=== PATIENT | female | born 1960 | race Hispanic/Latino ===

== ENCOUNTER 2019-06-19 18:03 | Emergency (ER) | payer SELFPAY ==
[2019-06-19] MEDS ORDERED: SODIUM CHLORIDE 0.9% 1000ML 1,000 ML IV ONE (19:07)
[2019-06-19 19:16] LABS: APPEARANCE,URINE Clear (CLEAR); BILIRUBIN,URINE Negative (NEGATIVE); COLOR,URINE Yellow (YELLOW); GLUCOSE, URINE (UA) Negative (NEGATIVE); KETONES,URINE Trace mg/dL (NEGATIVE); LEUKOCYTE ESTERASE ,URINE Trace (NEGATIVE); NITRATE,URINE Negative (NEGATIVE); OCCULT BLOOD,URINE Trace (NEGATIVE); PROTEIN,URINE Negative (NEGATIVE); UROBILINOGEN,URINE 0.2 mg/dL (0.2-1.0)
[2019-06-19 19:20] LABS: BASOPHILS % (AUTO) 0.2 % (0.0-5.0); EOSINOPHILS % (AUTO) 0.3 % (0.0-8.0); HEMATOCRIT 33.4 % (36-48); MEAN CORPUSCULAR HEMOGLOBIN 31.7 pg (27.0-33.0); MEAN CORPUSCULAR HGB CONC 36.2 g/dL (32.0-36.0); MEAN CORPUSCULAR VOLUME 87.6 fL (79-99); NEUTROPHILS % (AUTO) 77.5 % (40.0-77.0); PLATELET COUNT (AUTO) 284 K/uL (130-400); RED BLOOD CELL COUNT(AUTO) 3.82 MIL/uL (4.00-5.50); RED CELL DISTRIBUTION WIDTH 13.2 % (11.0-15.5); WHITE BLOOD COUNT (AUTO) 10.7 K/uL (4.8-10.8)
[2019-06-19 19:28] LABS: ALBUMIN 4.4 g/dL (3.5-5.0); BILIRUBIN,TOTAL 0.6 mg/dL (0.2-1.0); CREATININE 0.8 mg/dL (0.5-1.5); POTASSIUM 3.4 mmol/L (3.5-5.1); TOTAL PROTEIN, SERUM 8.5 g/dL (6.0-8.3)
[2019-06-19] MEDS ORDERED: IOHEXOL-350 75 ML VIAL IV ONE (19:44)
[2019-06-19 20:06] LABS: BACTERIA,URINE Rare /HPF (None Seen); MUCUS,URINE None Seen LPF (None Seen); SQUAMOUS EPITHELIAL CELL,UR 0-2 /HPF (0-2)
== END 2019-06-19 20:30 | disposition home or self-care (01) ==
LOC: EDH 18:03
DX: I10 Essential (primary) hypertension (principal); R10.11 Right upper quadrant pain; E11.9 Type 2 diabetes mellitus without complications
CPT/HCPCS: 36415; 74177; 80053; 81001; 83690; 85025; 99285; J7030; Q9967

== ENCOUNTER 2020-03-24 17:06 | Inpatient (IN) | payer OTHER, SELFPAY ==
[2020-03-24 18:00] LABS: BASOPHILS % (AUTO) 0.2 % (0.0-5.0); HEMATOCRIT 31.5 % (36-48); MEAN CORPUSCULAR HEMOGLOBIN 29.6 pg (27.0-33.0); MEAN CORPUSCULAR HGB CONC 35.9 g/dL (32.0-36.0); MEAN CORPUSCULAR VOLUME 82.5 fL (79-99); MONOCYTES % (AUTO) 7.7 % (3.0-13.0); NEUTROPHILS % (AUTO) 69.9 % (40.0-77.0); PLATELET COUNT (AUTO) 241 K/uL (130-400); RED BLOOD CELL COUNT(AUTO) 3.82 MIL/uL (4.00-5.50); RED CELL DISTRIBUTION WIDTH 12.3 % (11.0-15.5); WHITE BLOOD COUNT (AUTO) 6.5 K/uL (4.8-10.8)
[2020-03-24 18:08] LABS: INR 0.97 (0.85-1.15); PROTHROMBIN TIME 10.5 SEC (9.6-11.6)
[2020-03-24 18:19] LABS: ALBUMIN 4.3 g/dL (3.5-5.0); BILIRUBIN,TOTAL 0.8 mg/dL (0.2-1.0); CREATININE 0.6 mg/dL (0.5-1.5); TOTAL PROTEIN, SERUM 8.3 g/dL (6.0-8.3)
[2020-03-24] MEDS ORDERED: POTASSIUM CHLORIDE 20 MEQ ERTAB PO ONE (18:41)
[2020-03-24] MEDS ORDERED: DOXYCYCLINE HYCLATE 100 MG TABLET PO SCH (21:00)
[2020-03-24] MEDS ORDERED: GUAIFENESIN-DM 200/20 MG 10 ML PO PRN (21:15)
[2020-03-24] MEDS ORDERED: ERGOCALCIFEROL (VITAMIN D2) 50,000 UNIT CAPSULE PO ONE (21:15)
[2020-03-24] MEDS ORDERED: POTASSIUM CHLORIDE 20MEQ/100ML 100 ML IV PRN (21:15)
[2020-03-24] MEDS ORDERED: POTASSIUM CHLORIDE 20 MEQ ERTAB PO PRN (21:15)
[2020-03-24] MEDS ORDERED: ACETAMINOPHEN 325 MG TAB PO PRN ×2 (21:15)
[2020-03-24] MEDS ORDERED: MAGNESIUM 2GM PREMIX 50ML 50 ML IV PRN (21:15)
[2020-03-24] MEDS ORDERED: DOXYCYCLINE 100MG+NS 250ML IV SCH (21:15)
[2020-03-24] MEDS ORDERED: CEFTRIAXONE SODIUM 1 GM IVP SCH (21:15)
[2020-03-24] MEDS ORDERED: LIDOCAINE HCL-MPF 1% 2ML VIAL IV PRN (21:15)
[2020-03-24] MEDS ORDERED: ONDANSETRON HCL 4 MG/2 ML VIAL IV PRN (21:15)
[2020-03-24] MEDS ORDERED: POTASSIUM CHLORIDE 10% ELIXIR 20 MEQ/15 ML UDCUP PO PRN (21:15)
[2020-03-24] MEDS ORDERED: DOXYCYCLINE 100MG+NS 250ML 250 ML IV ONE (21:35)
[2020-03-24] MEDS ORDERED: METHYLPREDNISOLONE SOD SUCC 40MG/ML 1ML ONE (21:35)
[2020-03-24] MEDS ORDERED: FAMOTIDINE 20MG TAB 20 MG TAB ONE (21:36)
[2020-03-24] MEDS ORDERED: ENOXAPARIN SODIUM 40 MG/0.4 ML SYRINGE SQ ONE (21:36)
[2020-03-24] MEDS ORDERED: CEFTRIAXONE SODIUM 1 GM ONE (21:36)
[2020-03-24] MEDS ORDERED: SODIUM CHLORIDE 0.9% 50 ML IV ONE (21:37)
[2020-03-25] MEDS ORDERED: METHYLPREDNISOLONE SOD SUCC 40MG/ML 1ML ONE ×2 (04:21→08:34)
[2020-03-25 06:45] LABS: HEMATOCRIT 33.6 % (36-48); MEAN CORPUSCULAR HEMOGLOBIN 29.8 pg (27.0-33.0); MEAN CORPUSCULAR HGB CONC 35.1 g/dL (32.0-36.0); MEAN CORPUSCULAR VOLUME 84.8 fL (79-99); NEUTROPHILS % (AUTO) 82.8 % (40.0-77.0); PLATELET COUNT (AUTO) 258 K/uL (130-400); RED BLOOD CELL COUNT(AUTO) 3.96 MIL/uL (4.00-5.50); RED CELL DISTRIBUTION WIDTH 12.8 % (11.0-15.5); WHITE BLOOD COUNT (AUTO) 4.1 K/uL (4.8-10.8)
[2020-03-25 07:14] LABS: CARBON DIOXIDE 28 mmol/L (21-32); CHLORIDE 96 mmol/L (101-111); CREATININE 0.8 mg/dL (0.5-1.5); GLOMERULAR FILTR. RATE CALC 78 mL/min (>60); POTASSIUM 3.6 mmol/L (3.5-5.1); SODIUM SERUM 133 mmol/L (136-145)
[2020-03-25 07:47] LABS: ALANINE AMINOTRANSFERASE 40 U/L (12-78); ALBUMIN 4.2 g/dL (3.5-5.0); ASPARTATE AMINOTRANSFERASE 30 U/L (10-37); BILIRUBIN,TOTAL 0.5 mg/dL (0.2-1.0); GLUCOSE,RANDOM 169 mg/dL (70-105); LACTATE DEHYDROGENASE 268 U/L (81-234); TOTAL PROTEIN, SERUM 8.2 g/dL (6.0-8.3); UREA NITROGEN, BLOOD 4 mg/dL (7-18)
[2020-03-25] MEDS ORDERED: ENOXAPARIN SODIUM 60 MG/0.6 ML SQ ONE (08:33)
[2020-03-25] MEDS ORDERED: CEFTRIAXONE SODIUM 1 GM ONE (08:34)
[2020-03-25] MEDS ORDERED: ZINC SULFATE 220 CAPSULE ONE (08:34)
[2020-03-25] MEDS ORDERED: FAMOTIDINE/PF 20 MG/2 ML VIAL IV ONE (08:34)
[2020-03-25] MEDS ORDERED: ERGOCALCIFEROL (VITAMIN D2) 50,000 UNIT CAPSULE ONE (08:34)
[2020-03-25] MEDS ORDERED: DOXYCYCLINE HYCLATE 100 MG TABLET PO ONE (08:34)
--- NOTE | 2020-03-25 08:57 | NUR ---
SPOKE TO DAUGHTER KASIE ON THE PHONE FOR DC PLAN PATIENT LIVES WITH SPOUSE JOHN QUEEN AND YOUNGEST DAUGHTER,HAS OTHER GROWN CHILDREN LOCALLY. PATIENT IS INDEPENDENT, NO DME, HAS WOUND ON FOOT /ANKLE THAT YOUNGEST DAUGHTER DOES DSG CHANGES FOR STATES WAS EXPOSED TO A COVID POSITIVE PERSON, NO SYMPTOMS IN THE FAMILY. DCP IS HOME TO FOLLOW AT [facility]- ESTABLISHED PATIENT, GETS ALL HER MEDS THERE. SPOUSE TO PROVIDE TRANSPORT Addendum: 03/25/20 at 1454 by FAUSTINO SIMPSON RN Amended: Links added.
[2020-03-25] MEDS ORDERED: METHYLPREDNISOLONE SOD SUCC 40MG/ML 1ML IVP SCH (09:00)
[2020-03-25] MEDS ORDERED: FAMOTIDINE/PF 20 MG/2 ML VIAL IV SCH (09:00)
[2020-03-25] MEDS ORDERED: ASCORBIC ACID 500 MG TAB PO SCH (09:00)
[2020-03-25] MEDS ORDERED: ENOXAPARIN SODIUM 40 MG/0.4 ML SYRINGE SQ SCH (09:00)
[2020-03-25] MEDS ORDERED: SODIUM CHLORIDE 0.9% 1000ML 1,000 ML IV SCH (11:30)
[2020-03-25] MEDS ORDERED: ZINC SULFATE 220 CAPSULE PO SCH (12:00)
[2020-03-25] MEDS ORDERED: AZIT500T4 PO (19:55)
[2020-03-25] MEDS ORDERED: DEXA6TAB PO (19:55)
--- NOTE | 2020-03-25 20:00 | NUR ---
PT D/C W TEACH BACK SUCCESSFULLY IN [place] RX SENT TO PT'S PHARMACY PT DENIES SOB , DENIES CHEST PAIN PT AMBULATING ON ROOM AIR SATING AT 98% PT DENIES SOB , DENIES CHEST PAIN PENDING FAMILY TO ARRIVE TO TAKE PATIENT BACK HOME PRIMARY ER NURSE AWARE
--- NOTE | 2020-03-25 20:01 | NUR ---
PT'S IV REMOVED, CATHETER INTACT
== END 2020-03-25 21:18 | disposition home or self-care (01) | DRG 177 ==
LOC: EDH 17:06 → EDHIP 17:07
PROVIDERS: ADMIT Internal Medicine; ATTEND Internal Medicine
DX: U07.1 COVID-19 (principal); J12.89 Other viral pneumonia; E87.1 Hypo-osmolality and hyponatremia; E11.9 Type 2 diabetes mellitus without complications; E87.6 Hypokalemia; I10 Essential (primary) hypertension; Z90.49 Acquired absence of other specified parts of digestive tract
CPT/HCPCS: 36415; 71045; 80053; 82550; 82728; 82948; 83615; 83735; 84145; 84484; 85025; 85378; 85610; 85730; 86140; 93005; 94760; G0378; J0696; J1650; J2920; J3490; U0003

== ENCOUNTER 2020-04-07 22:46 | Emergency (ER) | payer SELFPAY ==
[~2020-04-07 22:46] MED LIST: AZIT500T4 PO; DEXA6TAB PO
[2020-04-07] MEDS ORDERED: ASPIRIN 325 MG TABLET ONE (23:37)
[2020-04-07] MEDS ORDERED: FAMOTIDINE/PF 20 MG/2 ML VIAL IV ONE (23:38)
[2020-04-07] MEDS ORDERED: NITROGLYCERIN 1GM/1 INCH PACKET TD ONE (23:38)
[2020-04-07 23:42] LABS: BASOPHILS % (AUTO) 0.4 % (0.0-5.0); EOSINOPHILS % (AUTO) 0.6 % (0.0-8.0); HEMATOCRIT 31.7 % (36-48); LYMPHOCYTES % (AUTO) 18.1 % (21.0-51.0); MEAN CORPUSCULAR HEMOGLOBIN 30.4 pg (27.0-33.0); MEAN CORPUSCULAR VOLUME 86.8 fL (79-99); MONOCYTES % (AUTO) 6.1 % (3.0-13.0); NEUTROPHILS % (AUTO) 74.5 % (40.0-77.0); PLATELET COUNT (AUTO) 286 K/uL (130-400); RED BLOOD CELL COUNT(AUTO) 3.65 MIL/uL (4.00-5.50)
[2020-04-07 23:51] LABS: CREATININE 0.7 mg/dL (0.5-1.5); INR 0.93 (0.85-1.15); PARTIAL THROMBOPLASTIN TIME 27.8 SEC (26.3-35.5); POTASSIUM 3.8 mmol/L (3.5-5.1); PROTHROMBIN TIME 10.1 SEC (9.6-11.6)
[2020-04-07 23:56] LABS: ALBUMIN 4.1 g/dL (3.5-5.0); BILIRUBIN,TOTAL 0.5 mg/dL (0.2-1.0); TOTAL PROTEIN, SERUM 8.1 g/dL (6.0-8.3)
[2020-04-08 00:22] LABS: B-TYPE NATRIURETIC PEPTIDE 11 pg/mL (0-100)
== END 2020-04-08 06:47 | disposition home or self-care (01) ==
LOC: EDH 22:46
DX: R07.89 Other chest pain (principal); I10 Essential (primary) hypertension; R42 Dizziness and giddiness; E11.9 Type 2 diabetes mellitus without complications; Z90.49 Acquired absence of other specified parts of digestive tract; Z98.890 Other specified postprocedural states
CPT/HCPCS: 36415; 71045; 80053; 82550; 83880; 84484 ×2; 85025; 85610; 85730; 93005 ×2; 96374; 99285; J3490

== ENCOUNTER 2020-04-11 20:22 | Emergency (ER) | payer SELFPAY ==
[2020-04-11] MEDS ORDERED: LORAZEPAM 2 MG/ML 1 ML VIAL ONE (21:22)
[2020-04-11 21:47] LABS: BASOPHILS % (AUTO) 0.5 % (0.0-5.0); EOSINOPHILS % (AUTO) 0.3 % (0.0-8.0); HEMATOCRIT 31.1 % (36-48); LYMPHOCYTES % (AUTO) 16.8 % (21.0-51.0); MEAN CORPUSCULAR HEMOGLOBIN 30.5 pg (27.0-33.0); MEAN CORPUSCULAR HGB CONC 34.7 g/dL (32.0-36.0); MEAN CORPUSCULAR VOLUME 87.9 fL (79-99); MONOCYTES % (AUTO) 7.1 % (3.0-13.0); PLATELET COUNT (AUTO) 259 K/uL (130-400); RED BLOOD CELL COUNT(AUTO) 3.54 MIL/uL (4.00-5.50); RED CELL DISTRIBUTION WIDTH 13.1 % (11.0-15.5); WHITE BLOOD COUNT (AUTO) 9.7 K/uL (4.8-10.8)
[2020-04-11 22:01] LABS: CREATININE 0.8 mg/dL (0.5-1.5); POTASSIUM 3.7 mmol/L (3.5-5.1)
[2020-04-11 22:05] LABS: BILIRUBIN,TOTAL 0.5 mg/dL (0.2-1.0); TOTAL PROTEIN, SERUM 7.9 g/dL (6.0-8.3)
[2020-04-11 22:15] LABS: APPEARANCE,URINE Clear (CLEAR); BILIRUBIN,URINE Negative (NEGATIVE); COLOR,URINE Yellow (YELLOW); GLUCOSE, URINE (UA) Negative (NEGATIVE); KETONES,URINE Negative (NEGATIVE); LEUKOCYTE ESTERASE ,URINE Negative (NEGATIVE); NITRATE,URINE Negative (NEGATIVE); OCCULT BLOOD,URINE Negative (NEGATIVE); PH,URINE 8.5 (5.0-8.0); PROTEIN,URINE Negative (NEGATIVE); UROBILINOGEN,URINE 0.2 mg/dL (0.2-1.0)
== END 2020-04-11 23:12 | disposition home or self-care (01) ==
LOC: EDH 20:22
DX: E87.1 Hypo-osmolality and hyponatremia (principal); E11.9 Type 2 diabetes mellitus without complications; I10 Essential (primary) hypertension; Z90.49 Acquired absence of other specified parts of digestive tract; Z98.890 Other specified postprocedural states
CPT/HCPCS: 36415; 80053; 81003; 84484; 85025; 93005; 96374; 99284; J2060

== ENCOUNTER → 2020-04-28 | Outpatient (CLI) | payer OTHER | END | disposition home or self-care (01) | LOC: RAH 13:17 | PROVIDERS: ATTEND Internal Medicine Cardiovascular Disease | DX: Z13.6 Encounter for screening for cardiovascular disorders (principal) | CPT/HCPCS: 75571 ==

== ENCOUNTER 2020-10-18 08:07 | Emergency (ER) | payer OTHER ==
[2020-10-18 08:51] LABS: APPEARANCE,URINE Clear (CLEAR); BILIRUBIN,URINE Negative (NEGATIVE); COLOR,URINE Yellow (YELLOW); GLUCOSE, URINE (UA) Negative (NEGATIVE); KETONES,URINE Trace mg/dL (NEGATIVE); LEUKOCYTE ESTERASE ,URINE Negative (NEGATIVE); NITRATE,URINE Negative (NEGATIVE); OCCULT BLOOD,URINE Trace (NEGATIVE); PH,URINE 7.5 (5.0-8.0); PROTEIN,URINE Negative (NEGATIVE); UROBILINOGEN,URINE 0.2 mg/dL (0.2-1.0)
[2020-10-18] MEDS ORDERED: FAMOTIDINE 20MG VIAL IV ONE (09:00)
[2020-10-18 09:04] LABS: BACTERIA,URINE Few /HPF (None Seen); RBC,URINE 0-1 /HPF (0-1); SQUAMOUS EPITHELIAL CELL,UR Rare /HPF (0-2)
[2020-10-18 09:26] LABS: BASOPHILS % (AUTO) 0.5 % (0.0-5.0); EOSINOPHILS % (AUTO) 0.2 % (0.0-8.0); LYMPHOCYTES % (AUTO) 14.9 % (21.0-51.0); MEAN CORPUSCULAR HEMOGLOBIN 30.1 pg (27.0-33.0); MEAN CORPUSCULAR HGB CONC 33.4 g/dL (32.0-36.0); MONOCYTES % (AUTO) 5.1 % (3.0-13.0); PLATELET COUNT (AUTO) 262 K/uL (130-400); RED BLOOD CELL COUNT(AUTO) 3.89 MIL/uL (4.00-5.50); RED CELL DISTRIBUTION WIDTH 13.1 % (11.0-15.5); WHITE BLOOD COUNT (AUTO) 6.3 K/uL (4.8-10.8)
[2020-10-18 09:40] LABS: CREATININE 0.7 mg/dL (0.5-1.5); POTASSIUM 3.9 mmol/L (3.5-5.1)
[2020-10-18 09:45] LABS: ALBUMIN 3.9 g/dL (3.5-5.0); BILIRUBIN,TOTAL 0.5 mg/dL (0.2-1.0); TOTAL PROTEIN, SERUM 7.9 g/dL (6.0-8.3)
== END 2020-10-18 11:48 | disposition home or self-care (01) ==
LOC: EDH 08:07
DX: R10.9 Unspecified abdominal pain (principal); R31.9 Hematuria, unspecified; R11.0 Nausea; E11.9 Type 2 diabetes mellitus without complications; I10 Essential (primary) hypertension; Z90.49 Acquired absence of other specified parts of digestive tract
CPT/HCPCS: 36415; 74176; 80053; 81001; 83605; 83690; 85025; 96374; 99284; J3490

== ENCOUNTER 2021-11-28 15:36 | Inpatient (IN) | payer OTHER ==
[~2021-11-28] VITALS: Ht 162.6 cm; Wt 80.6 kg
[2021-11-28] MEDS ORDERED: 0.9%NACL 1000ML 1,000 ML IV SCH (16:00)
[2021-11-28] MEDS ORDERED: PROMETHAZINE HCL 25 MG/ML 1ML AMPULE IM SCH (16:00)
[2021-11-28] MEDS ORDERED: FAMOTIDINE 20MG VIAL IV SCH (16:00)
[2021-11-28] MEDS ORDERED: MAG/ALUM/SIMETH 30 ML UDCUP PO SCH (16:00)
[2021-11-28] MEDS ORDERED: MAG/ALUM/SIMETH 30 ML UDCUP ONE (16:01)
[2021-11-28] MEDS ORDERED: FAMOTIDINE 20MG VIAL IV ONE (16:02)
[2021-11-28 16:08] LABS: BASOPHILS % (AUTO) 0.4 % (0.0-5.0); EOSINOPHILS % (AUTO) 0.3 % (0.0-8.0); HEMATOCRIT 34.5 % (36-48); LYMPHOCYTES % (AUTO) 19.2 % (21.0-51.0); MEAN CORPUSCULAR HEMOGLOBIN 30.3 pg (27.0-33.0); MEAN CORPUSCULAR HGB CONC 34.5 g/dL (32.0-36.0); MEAN CORPUSCULAR VOLUME 87.8 fL (79-99); MONOCYTES % (AUTO) 6.1 % (3.0-13.0); NEUTROPHILS % (AUTO) 73.7 % (40.0-77.0); PLATELET COUNT (AUTO) 223 K/uL (130-400); RED BLOOD CELL COUNT(AUTO) 3.93 MIL/uL (4.00-5.50); RED CELL DISTRIBUTION WIDTH 12.7 % (11.0-15.5); WHITE BLOOD COUNT (AUTO) 7.5 K/uL (4.8-10.8)
[2021-11-28 16:19] LABS: CREATININE 0.6 mg/dL (0.5-1.5); POTASSIUM 3.9 mmol/L (3.5-5.1)
[2021-11-28 16:26] LABS: BILIRUBIN,TOTAL 0.6 mg/dL (0.2-1.0); TOTAL PROTEIN, SERUM 7.9 g/dL (6.0-8.3)
[2021-11-28] MEDS ORDERED: LORAZEPAM 2 MG/ML 1 ML VIAL IVP ONE (16:30)
[2021-11-28 16:43] LABS: APPEARANCE,URINE Clear (CLEAR); BILIRUBIN,URINE Negative (NEGATIVE); COLOR,URINE Yellow (YELLOW); GLUCOSE, URINE (UA) Negative (NEGATIVE); KETONES,URINE Negative (NEGATIVE); LEUKOCYTE ESTERASE ,URINE Negative (NEGATIVE); NITRATE,URINE Negative (NEGATIVE); OCCULT BLOOD,URINE Nonhemolyzed Trace (NEGATIVE); PH,URINE 7.5 (5.0-8.0); PROTEIN,URINE Negative (NEGATIVE); UROBILINOGEN,URINE 0.2 mg/dL (0.2-1.0)
[2021-11-28 17:05] LABS: BACTERIA,URINE Rare /HPF (None Seen); SQUAMOUS EPITHELIAL CELL,UR None Seen /HPF (0-2); WBC,URINE 0-1 /HPF (0-1)
[2021-11-28] MEDS ORDERED: ONDANSETRON 4MG INJ IV PRN (19:00)
[2021-11-28] MEDS ORDERED: MORPHINE 2 MG SYG IV PRN (19:00)
[2021-11-28] MEDS ORDERED: MAG/ALUM/SIMETH 30 ML UDCUP PO ONE (19:00)
[2021-11-28] MEDS: 0.9%NACL 1000ML 1,000 ML IV SCH (19:14)
[2021-11-28] MEDS ORDERED: HYDROMORPHONE 0.5 MG SYG (0.5MG/0.5ML) IV PRN (19:30)
[2021-11-28] MEDS ORDERED: DICYCLOMINE HCL 10 MG/5 ML ML PO ONE (20:00)
[2021-11-28] MEDS ORDERED: LIDOCAINE HCL 2% VISCOUS 15 ML UDCUP PO ONE (20:00)
[2021-11-28] MEDS: SUCRALFATE 1 GM TABLET PO SCH (20:16)
[2021-11-28 23:50] VITALS: BP 129/58
[2021-11-29] MEDS: 0.9%NACL 1000ML 1,000 ML IV SCH (00:26)
[2021-11-29] MEDS ORDERED: ESOM40CA54 PO (00:41)
[2021-11-29] MEDS ORDERED: TELM40TA8 PO (00:41)
[2021-11-29] MEDS ORDERED: BUSP5TAB3 PO (00:41)
[2021-11-29] MEDS ORDERED: SERT-439 PO (00:41)
[2021-11-29] MEDS ORDERED: LEVO25TA54 PO (00:41)
[2021-11-29] MEDS ORDERED: LATA7.5D OU (00:41)
[2021-11-29] MEDS ORDERED: AMLO-257 PO (00:41)
[2021-11-29] MEDS ORDERED: ESOM20SU PO (00:41)
[2021-11-29] MEDS ORDERED: paracetamol PO (00:41)
[2021-11-29] MEDS ORDERED: SUCR1TAB2 PO (00:41)
[2021-11-29 04:00] VITALS: BP 129/67
[2021-11-29 05:32] LABS: BASOPHILS % (AUTO) 0.3 % (0.0-5.0); EOSINOPHILS % (AUTO) 0.5 % (0.0-8.0); HEMATOCRIT 35.1 % (36-48); LYMPHOCYTES % (AUTO) 35.2 % (21.0-51.0); MEAN CORPUSCULAR HGB CONC 33.6 g/dL (32.0-36.0); MEAN CORPUSCULAR VOLUME 89.3 fL (79-99); MONOCYTES % (AUTO) 8.3 % (3.0-13.0); NEUTROPHILS % (AUTO) 55.4 % (40.0-77.0); PLATELET COUNT (AUTO) 227 K/uL (130-400); RED BLOOD CELL COUNT(AUTO) 3.93 MIL/uL (4.00-5.50); RED CELL DISTRIBUTION WIDTH 12.8 % (11.0-15.5)
[2021-11-29 06:06] LABS: CREATININE 0.6 mg/dL (0.5-1.5); HEMOGLOBIN A1C 5.9 % (4.0-6.0); MAGNESIUM 2.2 mg/dL (1.80-2.40); PHOSPHORUS 3.9 mg/dL (2.5-4.9); POTASSIUM 3.5 mmol/L (3.5-5.1); THYROID STIMULATING HORMONE 2.94 uIU/mL (0.36-3.74)
[2021-11-29] MEDS: INSULIN HUMULIN R 100 UNIT/ML 3ML SQ SCH ×3 (06:15→16:30)
[2021-11-29] MEDS: SUCRALFATE 1 GM TABLET PO SCH ×4 (06:18→17:00)
[2021-11-29 08:00] VITALS: BP 129/66
[2021-11-29] MEDS: AMLODIPINE 5 MG TAB PO SCH (09:56)
[2021-11-29] MEDS: BUSPIRONE HCL 5 MG TABLET PO SCH (09:56)
[2021-11-29] MEDS: SERTRALINE HCL 50 MG TABLET PO SCH (09:56)
[2021-11-29] MEDS: PANTOPRAZOLE 40 MG TAB DR PO SCH (09:56)
[2021-11-29] MEDS: ENOXAPARIN SODIUM 40 MG/0.4 ML SYRINGE SQ SCH (09:57)
[2021-11-29] MEDS: ACETAMINOPHEN 325 MG TAB PO PRN ×2 (11:11→23:45)
[2021-11-29] MEDS: LACTULOSE 20 GM/30 ML UDCUP PO PRN (11:14)
[2021-11-29 12:00] VITALS: BP 125/63
[2021-11-29 16:00] VITALS: BP 141/75
[2021-11-29 18:32] LABS: CREATININE 0.7 mg/dL (0.5-1.5); POTASSIUM 3.4 mmol/L (3.5-5.1)
[2021-11-29 20:00] VITALS: BP 135/73
[2021-11-29] MEDS ORDERED: KCL 20 MEQ ERTAB PO ONE (20:00)
[2021-11-29] MEDS: LATANOPROST 2.5 ML DROPS OU SCH (20:55)
[2021-11-30] VITALS (7 sets, daily range): BP systolic 124–142; BP diastolic 70–75
[2021-11-30 04:25] LABS: BASOPHILS % (AUTO) 0.6 % (0.0-5.0); EOSINOPHILS % (AUTO) 0.9 % (0.0-8.0); HEMATOCRIT 35.6 % (36-48); LYMPHOCYTES % (AUTO) 39.6 % (21.0-51.0); MEAN CORPUSCULAR HEMOGLOBIN 30.6 pg (27.0-33.0); MEAN CORPUSCULAR VOLUME 89.9 fL (79-99); MONOCYTES % (AUTO) 8.2 % (3.0-13.0); NEUTROPHILS % (AUTO) 50.4 % (40.0-77.0); PLATELET COUNT (AUTO) 244 K/uL (130-400); RED BLOOD CELL COUNT(AUTO) 3.96 MIL/uL (4.00-5.50); WHITE BLOOD COUNT (AUTO) 6.8 K/uL (4.8-10.8)
[2021-11-30 04:41] LABS: CREATININE 0.7 mg/dL (0.5-1.5); MAGNESIUM 2.1 mg/dL (1.80-2.40); POTASSIUM 4.1 mmol/L (3.5-5.1)
[2021-11-30] MEDS: SUCRALFATE 1 GM TABLET PO SCH ×3 (06:33→17:04)
[2021-11-30] MEDS: LEVOTHYROXINE 25 MCG TABLET PO SCH (06:34)
[2021-11-30] MEDS: BUSPIRONE HCL 5 MG TABLET PO SCH (08:58)
[2021-11-30] MEDS: AMLODIPINE 5 MG TAB PO SCH (09:02)
[2021-11-30] MEDS: PANTOPRAZOLE 40 MG TAB DR PO SCH (09:03)
[2021-11-30] MEDS: SERTRALINE HCL 50 MG TABLET PO SCH (09:04)
[2021-11-30] MEDS: ENOXAPARIN SODIUM 40 MG/0.4 ML SYRINGE SQ SCH (09:07)
[2021-11-30] MEDS: LACTULOSE 20 GM/30 ML UDCUP PO PRN (10:11)
[2021-11-30] MEDS ORDERED: MAGNESIUM CITRATE 296 ML SOLUTION PO SCH (11:30)
[2021-11-30] MEDS: POLYETHYLENE GLYCOL 3350 17 GM POWD.PACK PO SCH (17:04)
[2021-11-30] MEDS ORDERED: LUBIPROSTONE 24 MCG CAP PO SCH (19:00)
[2021-11-30] MEDS: LATANOPROST 2.5 ML DROPS OU SCH (20:49)
[2021-12-01] VITALS (20 sets, daily range): BP systolic 115–140; BP diastolic 58–75
[2021-12-01 04:30] LABS: HEMATOCRIT 35.5 % (36-48); MEAN CORPUSCULAR HEMOGLOBIN 30.3 pg (27.0-33.0); MEAN CORPUSCULAR HGB CONC 34.6 g/dL (32.0-36.0); MEAN CORPUSCULAR VOLUME 87.4 fL (79-99); RED BLOOD CELL COUNT(AUTO) 4.06 MIL/uL (4.00-5.50); RED CELL DISTRIBUTION WIDTH 12.7 % (11.0-15.5)
[2021-12-01 05:06] LABS: ALBUMIN 3.8 g/dL (3.5-5.0); BILIRUBIN,TOTAL 0.6 mg/dL (0.2-1.0); CREATININE 0.6 mg/dL (0.5-1.5); MAGNESIUM 2.6 mg/dL (1.80-2.40); PHOSPHORUS 3.3 mg/dL (2.5-4.9); POTASSIUM 3.5 mmol/L (3.5-5.1); TOTAL PROTEIN, SERUM 7.7 g/dL (6.0-8.3)
[2021-12-01] MEDS: SUCRALFATE 1 GM TABLET PO SCH ×2 (05:54→16:30)
[2021-12-01] MEDS: LEVOTHYROXINE 25 MCG TABLET PO SCH (05:55)
[2021-12-01] MEDS ORDERED: LUBIPROSTONE 24 MCG CAP PO SCH (08:00)
[2021-12-01] MEDS ORDERED: LOSA25TA2 PO (09:00)
[2021-12-01] MEDS ORDERED: AMLO5TAB4 PO (09:00)
[2021-12-01] MEDS ORDERED: AMLODIPINE 5 MG TAB PO SCH (09:00)
[2021-12-01] MEDS ORDERED: LOSARTAN 25 MG TABLET PO SCH (09:00)
[2021-12-01] MEDS ORDERED: POLY17PO4 PO (09:00)
[2021-12-01] MEDS ORDERED: MIDAZOLAM HCL 1 MG/ML 2ML VIAL ONE (11:51)
[2021-12-01] MEDS ORDERED: PROPOFOL 10 MG/ML 20ML VIAL IV ONE (11:51)
[2021-12-01] MEDS ORDERED: LIDOCAINE PF 100MG/5ML (2%) SYRINGE 5ML ONE (11:53)
[2021-12-01] MEDS ORDERED: EPHEDRINE SULFATE 50 MG/ML AMPULE ONE (11:58)
[2021-12-01] MEDS: PANTOPRAZOLE 40 MG TAB DR PO SCH (16:28)
[2021-12-01] MEDS: BUSPIRONE HCL 5 MG TABLET PO SCH (16:38)
[2021-12-01] MEDS: SERTRALINE HCL 50 MG TABLET PO SCH (16:39)
[2021-12-01] MEDS: POLYETHYLENE GLYCOL 3350 17 GM POWD.PACK PO SCH (16:39)
[2021-12-01] MEDS: ENOXAPARIN SODIUM 40 MG/0.4 ML SYRINGE SQ SCH (16:40)
== END 2021-12-01 18:33 | disposition home or self-care (01) | DRG 392 ==
LOC: EDH 15:36 → OBSVTOIN 15:37 → EDHIP 15:37 → 3DH 11-29 00:03
PROVIDERS: ADMIT Internal Medicine; ATTEND Internal Medicine
PROC: 0DB68ZX Excision of Stomach, Via Natural or Artificial Opening Endoscopic, Diagnostic (ICD-10-PCS; principal; 2021-12-01)
DX: K29.70 Gastritis, unspecified, without bleeding (principal); E87.1 Hypo-osmolality and hyponatremia; E86.0 Dehydration; K21.9 Gastro-esophageal reflux disease without esophagitis; E87.8 Other disorders of electrolyte and fluid balance, not elsewhere classified; E66.9 Obesity, unspecified; Z20.822 Contact with and (suspected) exposure to COVID-19; E03.9 Hypothyroidism, unspecified; F32.A Depression, unspecified; E86.1 Hypovolemia; E11.9 Type 2 diabetes mellitus without complications; I10 Essential (primary) hypertension; D64.9 Anemia, unspecified; E78.00 Pure hypercholesterolemia, unspecified; K59.00 Constipation, unspecified; F41.9 Anxiety disorder, unspecified; M19.90 Unspecified osteoarthritis, unspecified site; Z68.30 Body mass index [BMI] 30.0-30.9, adult; Z90.49 Acquired absence of other specified parts of digestive tract; Z98.891 History of uterine scar from previous surgery
CPT/HCPCS: 36415; 43239; 70450; 71045; 74176; 80048; 80053; 81001; 82533; 82948; 83036; 83690; 83735; 83930; 83935; 84100; 84145; 84300; 84443; 84484; 85025; 85027; 87338; 87635; 93005; G0378; J1650; J2001; J2060; J2250; J2704; J3490; J7030

== ENCOUNTER 2021-12-05 18:38 | Emergency (ER) | payer OTHER ==
[~2021-12-05] VITALS: Ht 162.6 cm; Wt 83.0 kg
[~2021-12-05 18:38] MED LIST changes: +AMLO5TAB4 PO; -AZIT500T4 PO; +BUSP5TAB3 PO; -DEXA6TAB PO; +ESOM40CA54 PO; +LATA7.5D OU; +LEVO25TA54 PO; +LOSA25TA2 PO; +POLY17PO4 PO; +SERT-439 PO; +SUCR1TAB2 PO
[2021-12-05 19:53] LABS: BASOPHILS % (AUTO) 0.4 % (0.0-5.0); EOSINOPHILS % (AUTO) 0.2 % (0.0-8.0); HEMATOCRIT 36.6 % (36-48); LYMPHOCYTES % (AUTO) 16.1 % (21.0-51.0); MEAN CORPUSCULAR HEMOGLOBIN 30.6 pg (27.0-33.0); MEAN CORPUSCULAR VOLUME 87.6 fL (79-99); MONOCYTES % (AUTO) 5.9 % (3.0-13.0); PLATELET COUNT (AUTO) 262 K/uL (130-400); RED BLOOD CELL COUNT(AUTO) 4.18 MIL/uL (4.00-5.50); WHITE BLOOD COUNT (AUTO) 9.7 K/uL (4.8-10.8)
[2021-12-05 19:57] LABS: CREATININE 0.8 mg/dL (0.5-1.5); POTASSIUM 3.8 mmol/L (3.5-5.1)
[2021-12-05 20:01] LABS: BILIRUBIN,TOTAL 0.3 mg/dL (0.2-1.0); TOTAL PROTEIN, SERUM 8.1 g/dL (6.0-8.3)
[2021-12-05 20:12] LABS: APPEARANCE,URINE Clear (CLEAR); BILIRUBIN,URINE Negative (NEGATIVE); COLOR,URINE Orange (YELLOW); GLUCOSE, URINE (UA) Negative (NEGATIVE); KETONES,URINE Negative (NEGATIVE); LEUKOCYTE ESTERASE ,URINE Negative (NEGATIVE); NITRATE,URINE Negative (NEGATIVE); OCCULT BLOOD,URINE Small (NEGATIVE); PROTEIN,URINE Negative (NEGATIVE); UROBILINOGEN,URINE 0.2 mg/dL (0.2-1.0)
[2021-12-05 20:58] LABS: BACTERIA,URINE Rare /HPF (None Seen); SQUAMOUS EPITHELIAL CELL,UR 0-2 /HPF (0-2); WBC,URINE 0-1 /HPF (0-1)
[2021-12-05 22:47] VITALS: BP 132/74
== END 2021-12-05 22:52 | disposition home or self-care (01) ==
LOC: EDH 18:38
DX: B34.9 Viral infection, unspecified (principal); R53.1 Weakness; E11.9 Type 2 diabetes mellitus without complications; I10 Essential (primary) hypertension; Z79.52 Long term (current) use of systemic steroids; Z79.899 Other long term (current) drug therapy; Z90.49 Acquired absence of other specified parts of digestive tract
CPT/HCPCS: 36415; 80053; 81001; 83690; 84484; 85025; 93005

== ENCOUNTER → 2021-12-17 | Outpatient (CLI) | payer OTHER | END | disposition home or self-care (01) | LOC: SHCH 07:46 | PROVIDERS: ATTEND Internal Medicine Cardiovascular Disease | DX: I11.9 Hypertensive heart disease without heart failure (principal); E11.9 Type 2 diabetes mellitus without complications; E78.5 Hyperlipidemia, unspecified | CPT/HCPCS: 93306 ==